=== PATIENT | male | born 1940 | race Caucasian/White ===

== ENCOUNTER 2024-11-05 14:24 | Inpatient (IN) | payer MEDICARE ==
[2024-11-05 14:52] LABS: BASOPHILS PERCENT AUTO 0.4 % (0.0-1.0); EOSINOPHILS PERCENT AUTO 0.4 % (0.0-6.0); HEMATOCRIT 42.7 % (42.0-52.0); HEMOGLOBIN 13.8 gm/dl (14.0-18.0); IMMATURE GRAN ABSOLUTE AUTO 0.03 K/mm3 (0.00-0.05); IMMATURE GRAN PERCENT AUTO 0.4 % (0.0-0.4); LYMPHOCYTES ABSOLUTE AUTO 0.8 K/mm3 (1.0-4.8); LYMPHOCYTES PERCENT AUTO 10.6 % (24.0-44.0); MEAN CORPUSCULAR HEMOGLOBIN 29.6 pg (28.0-32.0); MEAN CORPUSCULAR HGB CONC 32.3 g/dl (32.0-36.0); MEAN CORPUSCULAR VOLUME 91.4 fl (83.0-99.0); MEAN PLATELET VOLUME 9.8 fl (9.4-12.4); MONOCYTES PERCENT AUTO 12.3 % (0.0-8.0); NEUTROPHILS ABSOLUTE AUTO 5.9 K/mm3 (1.8-7.7); NEUTROPHILS PERCENT AUTO 75.9 % (41.0-71.0); PLATELET COUNT,PLT 252 K/mm3 (150-400); RED BLOOD CELL COUNT 4.67 M/mm3 (4.52-5.90); WHITE BLOOD CELL COUNT,WBC 7.75 K/mm3 (3.9-11.3)
[2024-11-05] MEDS: Adenosine 6 MG/2 ML SDV IVPUSH ONE ×2 (15:16→15:19)
[2024-11-05] MEDS: Sodium Chloride 0.9% 10 ML Syringe FLUSH PRN (15:24)
[2024-11-05 15:38] LABS: ALBUMIN 3.5 g/dl (3.4-5.0); ANION GAP 14.3 (5-15); BILIRUBIN TOTAL 0.7 mg/dL (0.2-1.0); CALCIUM 9.2 mg/dL (8.5-10.1); EST CRCL DRUG DOSING (CG) 52.92 mL/min; POTASSIUM,K 3.3 mEq/L (3.5-5.1); PROTEIN TOTAL,TP 6.9 g/dl (6.4-8.2); TSH 1.299 uIU/mL (0.358-3.74)
[2024-11-05 15:40] LABS: LACTIC ACID 2.3 mmol/L (0.4-2.0)
[2024-11-05 15:45] LABS: PHOSPHORUS 3.6 mg/dL (2.6-4.7)
[2024-11-05 15:46] LABS: MAGNESIUM 2.1 mg/dL (1.8-2.4)
[2024-11-05] MEDS ORDERED: Acetaminophen 325 MG Tab PO PRN (16:23)
[2024-11-05] MEDS ORDERED: Ondansetron 4 MG/2 ML SDV IV PRN (16:23)
[2024-11-05] MEDS ORDERED: Melatonin 3 MG Tab PO PRN (16:23)
[2024-11-05] MEDS ORDERED: Sennosides/Docusate Sodium 50-8.6 MG Tab PO PRN (16:23)
[2024-11-05] MEDS: Furosemide 40 MG/4 ML VIAL IVPUSH ONE (16:32)
[2024-11-05] MEDS: Metoprolol Tartrate 25 MG Tab PO SCH (17:54)
[2024-11-05] MEDS: Potassium Chloride 20 MEQ Tab.ER PO ONE (17:55)
[2024-11-05] MEDS: cefTRIAXone 1 GM Vial IVPUSH SCH (17:57)
[2024-11-05 18:18] LABS: APPEARANCE,URINE CLEAR (Clear); BILIRUBIN,URINE NEGATIVE (Negative); COLOR,URINE YELLOW (Yellow); GLUCOSE,URINE NEGATIVE (Negative); KETONES,URINE NEGATIVE (Negative); LEUKOCYTE ESTERASE,URINE 2+ (Negative); NITRITE,URINE NEGATIVE (Negative); OCCULT BLOOD,URINE 2+ (Negative); PROTEIN,URINE TRACE (Negative); UROBILINOGEN,URINE 0.2 (0.2-1.0)
[2024-11-05 18:39] LABS: BACTERIA,URINE MODERATE /hpf (FEW); MUCUS,URINE FEW /hpf (FEW); WBC,URINE 30-40 /hpf (0-5)
[2024-11-05] MEDS: Metoprolol Tartrate 5 MG/5 ML SDV IVPUSH PRN (19:09)
[2024-11-05] MEDS: Midodrine 5 MG Tab PO PRN (19:53)
[2024-11-05] MEDS: Sodium Chloride 0.9% 500 ML IV ONE (20:35)
[2024-11-05] MEDS: Phenylephrine 10 MG in Sodium Chloride 0.9% 99 ML IV SCH (21:35)
[2024-11-05] MEDS: oxyCODONE 5 MG Tab PO PRN (22:42)
[2024-11-05] MEDS: Vasopressin 100 UNIT in Dextrose 5% in Water 245 ML IV SCH (23:54)
[2024-11-06] MEDS: Phenylephrine 1% 10 MG/ML SDV ONE (03:12)
[2024-11-06 05:40] LABS: BASOPHILS ABSOLUTE AUTO 0.1 K/mm3 (0.0-0.2); BASOPHILS PERCENT AUTO 0.4 % (0.0-1.0); EOSINOPHILS PERCENT AUTO 0.2 % (0.0-6.0); HEMATOCRIT 38.9 % (42.0-52.0); HEMOGLOBIN 12.8 gm/dl (14.0-18.0); IMMATURE GRAN ABSOLUTE AUTO 0.08 K/mm3 (0.00-0.05); IMMATURE GRAN PERCENT AUTO 0.6 % (0.0-0.4); LYMPHOCYTES ABSOLUTE AUTO 1.5 K/mm3 (1.0-4.8); LYMPHOCYTES PERCENT AUTO 11.9 % (24.0-44.0); MEAN CORPUSCULAR HEMOGLOBIN 29.6 pg (28.0-32.0); MEAN CORPUSCULAR HGB CONC 32.9 g/dl (32.0-36.0); MEAN CORPUSCULAR VOLUME 89.8 fl (83.0-99.0); MEAN PLATELET VOLUME 10.1 fl (9.4-12.4); MONOCYTES ABSOLUTE AUTO 1.2 K/mm3 (0.0-0.8); MONOCYTES PERCENT AUTO 9.8 % (0.0-8.0); NEUTROPHILS ABSOLUTE AUTO 9.6 K/mm3 (1.8-7.7); NEUTROPHILS PERCENT AUTO 77.1 % (41.0-71.0); PLATELET COUNT,PLT 263 K/mm3 (150-400); RED BLOOD CELL COUNT 4.33 M/mm3 (4.52-5.90); WHITE BLOOD CELL COUNT,WBC 12.45 K/mm3 (3.9-11.3)
[2024-11-06 05:47] LABS: ALBUMIN 2.9 g/dl (3.4-5.0); ANION GAP 15.3 (5-15); BILIRUBIN TOTAL 0.4 mg/dL (0.2-1.0); BUN/CREATININE RATIO 18.3 (14-18); C-REACTIVE PROTEIN 0.13 mg/dL (<0.30); CALCIUM 8.6 mg/dL (8.5-10.1); CREATININE 1.2 mg/dL (0.7-1.3); EST CRCL DRUG DOSING (CG) 45.82 mL/min; PHOSPHORUS 4.2 mg/dL (2.6-4.7); POTASSIUM,K 4.3 mEq/L (3.5-5.1); PROTEIN TOTAL,TP 5.9 g/dl (6.4-8.2)
[2024-11-06] MEDS: Midazolam 1 MG/ML 2 ML SDV ONE (10:54)
[2024-11-06] MEDS: Enoxaparin 40 MG/0.4 ML Syringe SUBCUT SCH (11:32)
[2024-11-06] MEDS: Sodium Chloride 0.9% 500 ML ONE (15:08)
== END 2024-11-06 16:25 | DRG 871 ==
LOC: JD.ED 14:24 → JD.ICU 16:23
PROVIDERS: ADMIT Student in an Organized Health Care Education/Training Program; ATTEND Student in an Organized Health Care Education/Training Program
PROC: 3E03329 Introduction of Other Anti-infective into Peripheral Vein, Percutaneous Approach (ICD-10-PCS; 2024-11-05)
PROC: 03HY32Z Insertion of Monitoring Device into Upper Artery, Percutaneous Approach (ICD-10-PCS; principal; 2024-11-06)
PROC: 4A133B1 Monitoring of Arterial Pressure, Peripheral, Percutaneous Approach (ICD-10-PCS; 2024-11-06)
PROC: 4A133J1 Monitoring of Arterial Pulse, Peripheral, Percutaneous Approach (ICD-10-PCS; 2024-11-06)
PROC: 02HV33Z Insertion of Infusion Device into Superior Vena Cava, Percutaneous Approach (ICD-10-PCS; 2024-11-06)
PROC: 3E043XZ Introduction of Vasopressor into Central Vein, Percutaneous Approach (ICD-10-PCS; 2024-11-06)
DX: I50.9 Heart failure, unspecified (principal); M79.89 Other specified soft tissue disorders; A41.9 Sepsis, unspecified organism; I50.23 Acute on chronic systolic (congestive) heart failure; J18.9 Pneumonia, unspecified organism; R57.0 Cardiogenic shock; I47.10 Supraventricular tachycardia, unspecified; E87.20 Acidosis, unspecified; N17.9 Acute kidney failure, unspecified; I11.0 Hypertensive heart disease with heart failure; R65.20 Severe sepsis without septic shock; E78.5 Hyperlipidemia, unspecified; M19.90 Unspecified osteoarthritis, unspecified site; E11.9 Type 2 diabetes mellitus without complications; R79.89 Other specified abnormal findings of blood chemistry; E78.00 Pure hypercholesterolemia, unspecified; I10 Essential (primary) hypertension; Z85.46 Personal history of malignant neoplasm of prostate; Z87.891 Personal history of nicotine dependence
CPT/HCPCS: 36415; 71045; 73562; 80053; 83605; 83735; 83880; 84100; 84443; 84484; 85025; 86140; 87040 ×2; 87428; 93005; 93970; 96374; 99285; J0153 ×2; 81001; 87086; 87088; 87186; 93306; 94762; A9270-GY; J0696; J1650; J1940; J2250; J2371; J3490; J7030; J7060